=== PATIENT | male | born 1995 | race Two or more races ===

== ENCOUNTER 2021-02-05 13:30 | Inpatient (IN) | payer OTHER ==
[~2021-02-05] VITALS: Ht 182.9 cm; Wt 6.0 kg
== END 2021-02-09 15:45 | disposition home or self-care (01) | DRG 281 ==
LOC: ER 13:30 → MEDJ 23:45 → SEC-K 23:45 → MEDJ 02-06 02:36
PROVIDERS: ADMIT Internal Medicine; ATTEND Internal Medicine
PROC: 4A12X4Z Monitoring of Cardiac Electrical Activity, External Approach (ICD-10-PCS; principal; 2021-02-05)
PROC: 3E0F7SF Introduction of Other Gas into Respiratory Tract, Via Natural or Artificial Opening (ICD-10-PCS; 2021-02-05)
PROC: BW28ZZZ Computerized Tomography (CT Scan) of Head (ICD-10-PCS; 2021-02-06)
PROC: B24BZZZ Ultrasonography of Heart with Aorta (ICD-10-PCS; 2021-02-06)
PROC: B030Y0Z Magnetic Resonance Imaging (MRI) of Brain using Other Contrast, Unenhanced and Enhanced (ICD-10-PCS; 2021-02-07)
DX: I51.81 Takotsubo syndrome (principal); I21.A1 Myocardial infarction type 2; M62.82 Rhabdomyolysis; T40.2X5A Adverse effect of other opioids, initial encounter; Y92.89 Other specified places as the place of occurrence of the external cause; F12.90 Cannabis use, unspecified, uncomplicated; Z20.822 Contact with and (suspected) exposure to COVID-19
CPT/HCPCS: 70552

== ENCOUNTER 2023-03-22 11:47 | Emergency (ER) | payer OTHER ==
[~2023-03-22] VITALS: Ht 185.4 cm; Wt 83.9 kg
[2023-03-22] MEDS ORDERED: CLEAR EYES COOL15 ML OP (14:08)
== END 2023-03-22 14:27 | disposition home or self-care (01) ==
LOC: ER 11:47
DX: H10.33 Unspecified acute conjunctivitis, bilateral (principal)